=== PATIENT | female | born 1955 | race Caucasian/White ===

== ENCOUNTER 2019-02-28 08:50 | Day surgery (SDC) | payer BC ==
[2019-02-27 15:42] VITALS: BMI 39.4
--- NOTE | 2019-02-28 09:59 | HP ---
Satellite H - Chief Complaint Chief Complaint: left shoulder pain - Past Medical History Allergies/Adverse Reactions: Allergies Allergy/AdvReac Type Severity Reaction Status Date / Time No Known Drug Allergies Allergy Verified 02/27/19 15:48 - Current Medications Current Medications: Home Medications Medication Instructions Recorded Hydrochlorothiazide [Hctz -] 25 mg PO DAILY 02/27/19 Metoprolol Tartrate 50 mg PO DAILY 02/27/19 Naproxen Sodium [Aleve] 220 mg PO PRN PRN 02/27/19 Simvastatin 40 mg PO DAILY 02/27/19 Oxycodone HCl/Acetaminophen 1 - 2 tab PO Q6H #30 tab MDD 6 02/28/19 [Percocet 5-325 mg Tablet] Satellite Physical Exam - Physical Examination Vital Signs: Vital Signs Period Temp Pulse Resp BP Sys/Elkins Pulse Ox Last 24 Hr 97.7 F-97.7 F 82-82 20-20 132-132/80-80 96 General Appearance: Well Nourished, Well Developed, Alert & Oriented x3 ENT: Clear Lung: Normal air movement Extremities: Other (left shoulder- + ttp, dec rom, + empty can, + neer, + parikh, nvi, MRI + rct) Neurological: Intact, Alert, Oriented Satellite Impression/Plan - Impression/Plan Impression: left shoulder rct Operative Procedure: left shoulder arthroscopy with RCRJAZMIN Date to be Performed: 02/28/19
[2019-02-28] MEDS ORDERED: ROPIVACAINE HCL 0.5% 30ML VIAL ONE (10:08)
[2019-02-28] MEDS ORDERED: MIDAZOLAM HCL 2 MG/2 ML SINGLE DOSE VIAL ONE ×4 (10:09→11:15)
[2019-02-28] MEDS ORDERED: ceFAZolin SODIUM 1 GM VIAL IVPB ONE (10:30)
[2019-02-28] MEDS ORDERED: ceFAZolin SODIUM 1 GM VIAL ONE (10:33)
--- NOTE | 2019-02-28 11:40 | OP ---
Operative Note - Note: [facility] Pre-Operative Diagnosis: left shoulder rct Operation: left shoulder arthroscopy with RCR, SAD Post-Operative Diagnosis: Same as Pre-op Surgeon: Elvis Haque Director Of Assessment: Brennen Alfaro Anesthesia: General, Local Specimens Removed: shavings Estimated Blood Loss (mls): 10
[2019-02-28] MEDS ORDERED: oxyCODONE HCL 5 MG TABLET PO PRN ×2 (12:07)
[2019-02-28] MEDS ORDERED: ONDANSETRON 4 MG/2 ML VIAL IVPUSH PRN (12:07)
[2019-02-28] MEDS ORDERED: LACTATED RINGERS SOLUTION 1,000 ML IV SCH (12:15)
[2019-02-28 17:35] VITALS: TEMP 97.2
[2019-02-28 18:05] VITALS: BP 134/72; PULSE 94
--- NOTE | 2019-02-28 20:29 | OP ---
DATE OF OPERATION: 02/28/2019 PREOPERATIVE DIAGNOSIS: Left rotator cuff tear. POSTOPERATIVE DIAGNOSIS: Left rotator cuff tear. PROCEDURE PERFORMED: Arthroscopy left shoulder with arthroscopic rotator cuff repair. SURGICAL ATTENDING: Elvis Haque MD SENIOR EXECUTIVE ASSISTANT: EDMAR Agrawal ANESTHESIA: Regional and general. CLOSURE: SpeedBridge and 2 adjuvant SwiveLock with SutureTape suture for rotator cuff and 3-0 nylon to the skin. ESTIMATED BLOOD LOSS: Negligible. COMPLICATIONS: None. CONDITION: To the recovery room in stable condition. DESCRIPTION OF PROCEDURE: The patient was taken to the operating room on February 28, 2019. Regional and general anesthesia was administered by the anesthesiologist. IV Kefzol was administered prophylactically prior to the case. The patient was placed in the beach-chair position with all prominences well padded. The left shoulder area was prepped and draped in the usual sterile fashion. First a diagnostic arthroscopy of the glenohumeral joint was performed. A posterior portal was made 2 fingerbreadths below the acromion, first with a 15 blade, followed by a blunt trocar. Evaluation of the glenohumeral joint revealed the following: Intact glenoid and humeral head articular cartilage, intact biceps and biceps anchor, intact labrum circumferentially, no loose bodies in the axillary pouch. The subscapularis was intact to its insertion. On looking superiorly, there was a large retracted rotator cuff tear clearly seen from the articular side. The scope would go over the top bluntly into the greater tuberosity. The trocar was removed from the glenohumeral joint. The posterior trocar was redirected to the subacromial space. Accessory lateral and anterior portals were made with a 15 blade followed by a blunt trocar. The working portal was laterally. Through this portal we were able to debride the subacromial space of fibrous bursal tissue with a spur in the subacromial region. This was debrided using the acromionizer bur. A formal acromioplasty was then performed with elevating the acromion high to gain sufficient height for the rotator cuff. The coracoacromial ligament was debrided as well. The greater tuberosity was found to be devoid of rotator cuff tissue. The bur was used to remove a layer of bone to allow a bleeding and flat surface for reimplantation of the rotator cuff. The rotator cuff itself was found to have an extremely large tear, going from the biceps all the way posteriorly. The leading edge was debrided using the shaver. Two medial-row anchors were placed at the articular margin, one more anteriorly and one posteriorly as well with the SwiveLock and preloaded SutureTape sutures. They were passed using the Coolio needle punch in a fanned-out position through the rotator cuff from [id number]. Each one of those sutures was docked in the anterior portal. One anterior and 1 posterior limb were then fixated to a more lateral anchor posteriorly. Then 1 anterior and 1 posterior limb were fixated to a lateral anchor more anteriorly. There were still gaps in the rotator cuff, both anterior and posterior. These were fixated through individual SutureTape sutures passed through the lateral portal and fixated using SwiveLocks, 1 more anteriorly and 1 more posteriorly. Post fixation, there was visualization of the improved clearance in the subacromial space and passive range of motion demonstrated stability of the repair construct. The fluid was drained from the shoulder. The portals were closed using 3-0 nylon sutures, followed by Aquacel dressing, followed by a shoulder immobilizer was applied. The patient was awakened from anesthesia and transferred to the recovery room in stable condition. No complications. Estimated blood loss was negligible. Deanne PRESLEY/[id number]
--- NOTE | 2019-03-01 13:12 | PATH ---
Surgical Pathology Report Patient Name: MARIO GARCIA Med. Rec. #: [id number] /Age/Gender: 1955 (Age: 64) / F Account: [id number] Location: [facility] SURGICAL Taken: 02/28/2019 Received: 02/28/2019 Reported: 03/01/2019 Physicians: Elvis Haque M.D. Specimen(s) Received LEFT SHOULDER SHAVINGS Clinical History Left shoulder tear Final Diagnosis SHOULDER SHAVINGS, LEFT, ARTHROSCOPY: FRAGMENTS OF BENIGN BONE, CARTILAGE, DENSE FIBROCONNECTIVE TISSUE, ADIPOSE TISSUE, SYNOVIUM, AND SKELETAL MUSCLE. Electronically Signed Ashley Chan M.D. Gross Description Received in formalin, labeled "left shoulder shavings," is a 4.0 x 4.0 x 0.3 cm. aggregate of villanueva-yellow soft tissue fragments. A employee's representative portion is submitted in one cassette. 02/28/201902/28/2019
== END 2019-02-28 14:15 | disposition home or self-care (01) ==
LOC: JASU-SURG 08:50
PROVIDERS: ATTEND Orthopaedic Surgery
PROC: 0LQ14ZZ Repair Right Shoulder Tendon, Percutaneous Endoscopic Approach (ICD-10-PCS; principal; 2019-02-28 10:30)
DX: M75.102 Unspecified rotator cuff tear or rupture of left shoulder, not specified as traumatic (principal)
CPT/HCPCS: 94760